=== PATIENT | female | born 1985 | race African-American/Black ===

== ENCOUNTER 2017-01-19 05:07 | Inpatient (IN) | payer MEDICAID, SELFPAY ==
[~2017-01-19 05:07] MED LIST: ISOVUE-370 76%-LOCM 1 ML ONE
[2017-01-19] MEDS ORDERED: Docusate 100 MG CAP PO PRN (06:44)
[2017-01-19] MEDS ORDERED: Morphine Sulfate 2 MG/ML SYRINGE SLOW IVP PRN (06:44)
[2017-01-19] MEDS ORDERED: Fentanyl 100 MCG/2 ML VIAL ONE (08:03)
--- NOTE | 2017-01-19 09:18 | CT ---
PRELIMINARY REPORT/[facility]/EMERGENCY AFTER HOURS PROCEDURE: EXAM: CT Angiography Head With Intravenous Contrast CLINICAL HISTORY: 31 years old, female; Condition or disease; Other: Hemorrhage; Patient HX: Er 3; F30 presents as a t ransfer from another facility for subarachnoid hemorrhage. Pt reports neck pain and HUNG. Concern for ruptured aneurysm. Ems reports 3 episodes of vomiting. Pt reports family HX of aneurysms. Pt reports its been a week since she used meth. TECHNIQUE: Axial computed tomographic angiography images of the head with intravenous contrast using CT angiogr aphy protocol. Coronal reformatted images were created and reviewed. COMPARISON: No relevant prior studies available. FINDINGS: Right internal carotid artery: No significant stenosis. No dissection or occlusion. Right anterior cerebral artery: No occlusion or significant stenosis. No aneurysm. Right middle cerebral artery: No occlusion or significant stenosis. No aneurysm. Right posterior cerebral artery: No occlusion or significant stenosis. No aneurysm. Right vertebral artery: No significant stenosis. No dissection or occlusion. Left internal carotid artery: No significant stenosis. No dissection or occlusion. Left anterior cerebral artery: No occlusion or significant stenosis. No aneurysm. Left middle cerebral artery: No occlusion or significant stenosis. No aneurysm. Left posterior cerebral artery: No occlusion or significant stenosis. No aneurysm. Left vertebral artery: No significant stenosis. No dissection or occlusion. Basilar artery: No occlusion or significant stenosis. No aneurysm. Brain: Evaluation limited by contrast opacification. Subarachnoid hemorrhage at least in the prepont ine/pre-medullary cisterns. IMPRESSION: No aneurysm is identified. Thank you for allowing us to participate in the care of your patient. Dictated and Authenticated by: Hawk Butler MD 01/19/2017 6:47 AM Central Time ([place] \T\ [place]) FINAL REPORT CONTRAST ENHANCED CTA BRAIN: HISTORY: Intracranial hemorrhage. FINDINGS: Preliminary exam was performed by [facility]. A contrast enhanced CTA of the brain was performed, and 2D and 3D reconstructed images were performe d on an independent 3D work station. No significant evidence of intracranial aneurysms or vascular malformations is seen. Normal flow is seen in the major intracranial vessels. The vertebrobasilar arteries are unremarkable. The P1 seg ments of the posterior cerebral artery are unremarkable. No evidence of AICA or PICA aneurysms is s een. IMPRESSION: Normal CTA brain. I concur with the dictation from [facility]. POS: [facility]
[2017-01-19] MEDS: Sodium Chloride 0.9% 1,000 ML IV SCH ×2 (09:39→13:52)
[2017-01-19] MEDS: niMODipine 30 MG CAP PO SCH ×5 (10:34→22:22)
[2017-01-19] MEDS ORDERED: Dexamethasone 10 MG/ML VIAL SLOW IVP SCH (11:00)
[2017-01-19] MEDS ORDERED: Labetalol HCl 100 MG/20 ML VIAL SLOW IVP PRN (11:01)
[2017-01-19] MEDS ORDERED: Dextrose 5% in Water 1,000 ML IV PRN (11:06)
[2017-01-19] MEDS ORDERED: Dextrose 50% Abboject 50 ML SYRINGE SLOW IVP PRN (11:06)
--- NOTE | 2017-01-19 11:12 | PDOC.PN ---
- Subjective Encounter Start Date: 01/19/17 Encounter Start Time: 11:07 Pt seen re: diabetes mellitus. Sleepy but arousable, denies chest pain, shortness of breath, nausea. Headache is better. - Objective MAR Reviewed: Yes EKG Reviewed by me: Yes (Tele: NSR) Phys Exam - Physical Examination Constitutional: NAD HEENT: moist MMs, oral pharynx no lesions Neck: supple, full ROM Respiratory: no wheezing, no rales, no rhonchi, clear to auscultation bilateral Cardiovascular: RRR, no rub Gastrointestinal: soft, positive bowel sounds Musculoskeletal: pulses present Neurological: non-focal, moves all 4 limbs Psychiatric: normal affect Dx/Plan (1) DM2 (diabetes mellitus, type 2) Status: Chronic (2) Methamphetamine abuse Code(s): F15.10 - OTHER STIMULANT ABUSE, UNCOMPLICATED Status: Chronic (3) Intracranial bleed Code(s): I62.9 - NONTRAUMATIC INTRACRANIAL HEMORRHAGE, UNSPECIFIED Status: Acute - Plan * . Start insulin sliding scale, monitor accuchecks. Pt to receive steroids. Counseled re: methamphetamine cessation. Review of Systems - Review of Systems Respiratory: negative: Cough, Dry, Shortness of Breath, Hemoptysis, SOB with Excertion, Pleuritic Pain, Sputum, Wheezing Cardiovascular: negative: Chest Pain, Palpitations, Orthopnea, Paroxysmal Noc. Dyspnea, Edema, Light Headedness Neurological: Other (Headache). negative: Weakness, Numbness, Incoordination, Change in Speech, Confusion, Seizures - Medications/Allergies Allergies/Adverse Reactions: Allergies Allergy/AdvReac Type Severity Reaction Status Date / Time iodine Allergy Verified 01/19/17 09:29 shellfish derived Allergy Verified 01/19/17 09:29 Medications: Current Medications Acetaminophen/Codeine Phosphate (Tylenol #3) 1 tab PO Q4H PRN PRN Reason: Moderate Pain (4-6) Acetaminophen/Codeine Phosphate (Tylenol #3) 2 tab PO Q4H PRN PRN Reason: Pain Dexamethasone (Decadron) 10 mg SLOW IVP NOW [facility] Stop: 01/19/17 13:00 Dexamethasone (Decadron) 4 mg SLOW IVP Q6HR [facility] Stop: 01/20/17 00:00 Dexamethasone (Decadron) 3 mg SLOW IVP Q6HR [facility] Stop: 01/21/17 00:00 Dexamethasone (Decadron) 2 mg SLOW IVP Q6HR [facility] Stop: 01/22/17 00:00 Dexamethasone (Decadron) 1 mg SLOW IVP Q6HR [facility] Stop: 01/23/17 00:00 Dextrose/Water (Dextrose 50%) 25 gm SLOW IVP PRN PRN PRN Reason: Hypoglycemia Docusate Sodium (Colace) 100 mg PO BIDPRN PRN PRN Reason: Constipation Glucagon (Glucagon) 1 mg IM PRN PRN PRN Reason: Hypoglycemia Hydralazine HCl (Apresoline) 5 mg SLOW IVP Q15MIN PRN PRN Reason: SBP > 120 Sodium Chloride (Normal Saline 0.9%) 1,000 mls @ 125 mls/hr IV .Q8H [facility] Last Admin: 01/19/17 09:39 Dose: Not Given Levetiracetam 500 mg/ Device 100 mls @ 200 mls/hr IVPB BID [facility] Dextrose/Water (D5w) 1,000 mls @ 0 mls/hr IV .Q0M PRN; As Directed PRN Reason: Hypoglycemia Insulin Human Regular (Humulin R) 0 units SC .MODERATE SLIDING SC PRN PRN Reason: Moderate Correctional Scale Labetalol HCl (Normodyne) 5 mg SLOW IVP Q15MIN PRN PRN Reason: TO KEEP SBP < 130 Morphine Sulfate (Morphine Sulfate) 2 mg SLOW IVP Q1H PRN PRN Reason: Moderate Pain (4-6) Morphine Sulfate (Morphine Sulfate) 4 mg SLOW IVP Q1H PRN PRN Reason: Severe Pain (7-10) Last Admin: 01/19/17 10:33 Dose: 4 mg Nimodipine (Nimodipine) 60 mg PO Q4HR [facility] Last Admin: 01/19/17 10:34 Dose: 60 mg Ondansetron HCl (Zofran) 4 mg IVP Q6H PRN PRN Reason: Nausea/Vomiting Pantoprazole Sodium (Protonix) 40 mg IVP BID [facility]
[2017-01-19] MEDS: Insulin Regular 300 UNITS/3 ML VIAL SC PRN ×2 (11:56→16:21)
--- NOTE | 2017-01-19 13:22 | PRG ---
DATE OF SERVICE: 01/19/2017 I personally interviewed and examined the patient and agree with documentation of Larry Melendez PA-C, dated 01/19/2017. Briefly, Macie Ribeiro is a 31-year-old woman with a history of some substance abuse issues who had a coital headache this morning and was brought to our emergency department. CT examination of t he brain revealed some subarachnoid hemorrhage in the posterior fossa and around the mid brain. The re was some in the fourth ventricle. CT angiography did not reveal aneurysmal source, nor significa ntly large flow voids indicative of a large AVM. The contour of the basilar artery looks a little i rregular but that is hard to tell on the CT angiogram. When I see Ms. Haas in the ICU, she is awake. She is answering questions appropriately. I do not find any cranial neuropathy. She is moving her arms and legs well. She has headache and photophob ia, neck stiffness from the chemical meningitis of subarachnoid hemorrhage in the posterior fossa. I reviewed imaging and the findings are as above. Our plan today is to control Ms. Haas's pain and blood pressure. We will keep her on nimodipine. We will repeat the CT and the CT angiography tomorrow. If it is still negative, we will consider c atheter-based angiogram on Saturday with Dr. Grajeda.
--- NOTE | 2017-01-19 13:41 | HP ---
HISTORY OF PRESENT ILLNESS: Ms. Haas originally presented to [place] [facility] wi th a stabbing headache and neck pain. She was found on CT scan of the head to have a coital subarac hnoid hemorrhage. She was transported then to [place] [facility] to be treated for a s ubarachnoid hemorrhage. She is fully awake. She answers my questions appropriately. She moves all extremities. She has a GCS of 15. During her EMS transport, she was given 50 mcg of fentanyl, in which she has pinpoint pupils bilaterally on exam and minimally reactive to light. Her other crania l nerves are intact. A CTA of the brain is done and results are pending. The patient has a family history of aneurysms and has a history of occasional methamphetamine use. Upon presentation, her bl ood pressure was 145/79. Neurosurgery was consulted for the findings of subarachnoid hemorrhage on CT scan. ALLERGIES: IODINE and SHELLFISH. CURRENT MEDICATIONS: 1. Prilosec 10 mg oral. 2. Metformin 1000 mg oral. PAST MEDICAL HISTORY: Includes diabetes type 2. PAST SURGICAL HISTORY: No surgical history. PSYCHIATRIC HISTORY: Includes anxiety and depression. SOCIAL HISTORY: Patient currently uses drugs and abuses methamphetamines, has no smoking history. Last use of methamphetamines was 01/13/2017. REVIEW OF SYSTEMS: Patient reports vomiting. She denies any abdominal pain or diarrhea. She repor ts severe neck pain and headache and denies any dizziness. All other review of systems is negative except for that noted in the above HPI. PHYSICAL EXAMINATION: VITAL SIGNS: Blood pressure 145/79, pulse 73, respirations 20, and temperature 100.1. Pain 9. O2 saturation is 100% on room air. CONSTITUTIONAL: The patient's vital signs are reviewed; they are stable. She is alert and oriented to person, place and time in generalized distress. HEENT: Normocephalic, atraumatic. Hearing intact. Moist mucous membranes. Trachea midline. Eyes : Pupils are pinpoint, minimally reactive to light. Extraocular muscles are intact. Sclerae are w ifrah, nonicteric. NECK: Patient has diffuse posterior neck pain. She has normal range of motion. Trachea is midline . RESPIRATORY: Patient has bilateral symmetric chest rise. Appears to be in no shortness of breath. CARDIOVASCULAR: Patient has normal S1, S2 heart sounds. Regular rate and rhythm. No distal cyanos is or clubbing noted. EXTREMITIES: Upper extremity exam, motor and strength are intact bilaterally. Sensation is intact. She has normal radial pulses are +2. Lower extremities, 5/5 strength in bilateral lower extremiti es. No sensory or motor deficits noted. NEUROLOGIC: Cranial nerves II-XII are grossly intact. Speech is fluent and she answers my question s appropriately. She is moving all extremities, has no focal motor or sensory deficits. SKIN: Normal, dry, and intact. Turgor is normal. IMAGING: CT scan of the brain shows subarachnoid hemorrhage. CTA angio awaiting results. ASSESSMENT: Ms. Ribeiro is a 31-year-old female who is transferred from [place] for a subarachnoid hemorrhage to [place]. PLAN: 1. We will admit Ms. Ribeiro to the ICU. Get a repeat CT scan in approximately 6 hours. We will sta rt her on nimodipine 60 mg q.4 hours for 21 days. We will consult the Hospitalist Service for diabe tic management as her glucose is 418. 2. Place the head of bed at 30 degrees and do neuro status checks every 2 hours. 3. We will do continuous vital signs and help control her neck and headache pain. If there are any further questions, please feel free to contact Neurosurgery.
--- NOTE | 2017-01-19 15:59 | CT ---
CT BRAIN 01/19/17 HISTORY: Status post subarachnoid hemorrhage. Noncontrast enhanced CT images of the brain is obtained on 01/19/17. Comparison made to a previous exam from earlier in the day. Noncontrast enhanced CT images of the brain demonstrated again lateral ventricle hemorrhage, third, fourth ventricular hemorrhage to be seen. The volume of hemorrhage in the ventricles is not signific antly changed. The degree of hydrocephalus is not significantly changed. Prepontine subarachnoid hem orrhage is also unchanged. No significant increased hemorrhage seen. No other significant interval c hanges seen. IMPRESSION: Stable CT appearance of the brain with hemorrhage and hydrocephalus unchanged. POS: [facility]
[2017-01-19] MEDS: Dexamethasone 4 mg/ml Vial SLOW IVP SCH (17:29)
[2017-01-19] MEDS: Ondansetron HCl/PF 4 MG/2 ML Vial IVP PRN (17:45)
--- NOTE | 2017-01-19 20:07 | PRG ---
DATE OF SERVICE: 01/19/2017 Quintin Haas is a 31-year-old female. History is as outlined. She is just back from the CT. She i s getting morphine. She is lethargic, but arousable. Earlier Dr. Huston, neurosurgeon, examined her. Her [place] coma score was 5. She is . She presented to [place] with a headache. CT showed a subarachnoid hemorrhage, and was transfe rred over here. She was started on nimodipine 60 mg every 4 hours protocol for 21 days. PAST MEDICAL HISTORY: Diabetes, reflux. She takes metformin and Prilosec. PREVIOUS SURGERIES: Apparently none. SOCIAL AND FAMILY HISTORY: Apparently, there is some history of substance abuse of meth. REVIEW OF SYSTEMS: Otherwise unremarkable. PHYSICAL EXAMINATION: VITAL SIGNS: Her blood pressure is 118/80, pulse 80, respirations 18. CHEST: Revealed decreased breath sounds, no wheezing. CARDIAC: Normal S1, S2. No gallops . ABDOMEN: Soft, no masses. LABORATORY DATA: White count 10, H and H was 10 and 38. Platelet count is normal. Electrolytes ar e normal. Urine showed opiates. IMAGING: Patient's CT is noted. No obvious aneurysm was seen. No chest x-ray has been done. IMPRESSION: 1. Subarachnoid hemorrhage. 2. Diabetes. PLAN: Continue nimodipine as per Neurosurgery. We will follow while in the ICU.
[2017-01-19] MEDS: Pantoprazole 40 MG VIAL IVP SCH (22:12)
[2017-01-20] MEDS: Ondansetron HCl/PF 4 MG/2 ML Vial IVP PRN ×5 (00:19→23:47)
[2017-01-20] MEDS: Dexamethasone 4 mg/ml Vial SLOW IVP SCH ×4 (00:19→18:24)
[2017-01-20] MEDS: niMODipine 30 MG CAP PO SCH ×6 (01:17→20:35)
[2017-01-20] MEDS: Sodium Chloride 0.9% 1,000 ML IV SCH ×3 (01:18→14:45)
[2017-01-20 04:05] LABS: #Monocytes 0.3 thou/uL (0.11-0.59); #Neutrophils 14.8 thou/uL (1.40-6.50); %Basophils 0.1 % (0.0-1.0); %Eosinophils 0.2 % (0.0-10.0); %Lymphocytes 6.3 % (21.0-51.0); %Monocytes 1.8 % (0.0-10.0); Hematocrit 37.1 % (36.0-47.0); Mean Platelet Volume 7.7 fL (7.4-10.4); Red Blood Cell (RBC) Count 3.87 mill/uL (4.20-5.40); White Blood Cell (WBC) Count 16.2 thou/uL (4.8-10.8)
[2017-01-20 04:18] LABS: Anion Gap 14 mmol/L (10-20); BUN (Urea Nitrogen) 8 mg/dL (7.0-18.7); Calc. Creatinine Clearance 127 mL/min (70-130); Carbon Dioxide 17 mmol/L (22-29); Chloride 106 mmol/L (98-107); Estimated GFR-MDRD Greater than 90
[2017-01-20] MEDS ORDERED: Famotidine/PF 20 mg/2ml Vial SLOW IVP SCH (06:30)
[2017-01-20] MEDS ORDERED: diphenhydrAMINE HCl 50 MG/ML 1 ML VIAL IVP SCH (06:30)
[2017-01-20] MEDS: Pantoprazole 40 MG VIAL IVP SCH ×2 (09:01→20:35)
--- NOTE | 2017-01-20 09:31 | PRG ---
DATE OF SERVICE: 01/20/2017 NEUROSURGERY PROGRESS NOTE SUBJECTIVE: Ms. Waldo Ribeiro is starting her second hospital day with us. She was admitted with co ital headache and some subarachnoid hemorrhage around the brainstem and mid brain. CT angiography w as negative. We have been watching Ms. Waldo Ribeiro's blood pressure and giving her nimodipine. Th is morning, she still complains of headache and neck pain and she is neurologically intact. A repea t CT scan yesterday showed decreased amount of subarachnoid blood. I am going to repeat the CT tabitha ogram of the brain to make sure that we do not see any vessel abnormality as blood goes away. Ana María regalado, I consider CT angiogram of the cervical spine, specifically looking at her carotid arteries and v ertebral arteries for any dissection.
--- NOTE | 2017-01-20 11:02 | PRG ---
DATE OF SERVICE: 01/20/2017 SUBJECTIVE: I saw Ms. Haas in her room this morning. Overnight, there have been no acute events. Her cranial nerves II-XII are grossly intact. Her speech is fluent. She answers my questions alden ropriately. We plan on getting a CT scan of her head and neck today. White blood cell count was 16 .2 and RBCs are 3.87 this morning. She had sodium of 133 and her glucose is 255. She does not have any new neurologic deficits on exam. We will continue to await the results from the CT. She can c marylou to work with physical therapy today. If there is any further questions, please feel free to contact Neurosurgery.
--- NOTE | 2017-01-20 11:12 | PDOC.PN ---
- Subjective Encounter Start Date: 01/20/17 Encounter Start Time: 10:20 Pt seen for followup re; diabetes mellitus. Has headache. No chest pain, shortness of breath, fevers or chills. No vomiting. - Objective MAR Reviewed: Yes Vital Signs & Weight: Most Recent Monitor Data Heart Rate from ECG 77 NIBP 125/54 NIBP BP-Mean 76 Respiration from ECG 19 SpO2 99 I&O: 01/19/17 01/20/17 01/21/17 06:59 06:59 06:59 Intake Total 303 320 Output Total 2765 721 Balance -2462 -401 Result Diagrams: 01/20/17 03:48 01/20/17 03:48 Additional Labs: Accuchecks 01/19/17 01/19/17 01/19/17 22:20 16:19 11:12 POC Glucose 185 H 255 H 290 H EKG Reviewed by me: Yes (Tele: NSR) Phys Exam - Physical Examination Constitutional: NAD HEENT: moist MMs, oral pharynx no lesions Neck: supple Respiratory: no wheezing, no rales, no rhonchi, clear to auscultation bilateral Cardiovascular: RRR, no rub Neurological: moves all 4 limbs Psychiatric: normal affect Dx/Plan (1) DM2 (diabetes mellitus, type 2) Status: Chronic (2) Methamphetamine abuse Code(s): F15.10 - OTHER STIMULANT ABUSE, UNCOMPLICATED Status: Chronic (3) Intracranial bleed Code(s): I62.9 - NONTRAUMATIC INTRACRANIAL HEMORRHAGE, UNSPECIFIED Status: Acute - Plan * . Accuchecks still high, start levemir. Review of Systems - Review of Systems Respiratory: negative: Cough, Dry, Shortness of Breath, Hemoptysis, SOB with Excertion, Pleuritic Pain, Sputum, Wheezing Cardiovascular: negative: Chest Pain, Palpitations, Orthopnea, Paroxysmal Noc. Dyspnea, Edema, Light Headedness, Other Neurological: Other (Headache) - Medications/Allergies Allergies/Adverse Reactions: Allergies Allergy/AdvReac Type Severity Reaction Status Date / Time Fish Containing Products Allergy Verified 01/19/17 17:45 iodine Allergy Verified 01/19/17 09:29 shellfish derived Allergy Verified 01/19/17 09:29 Medications: Current Medications Acetaminophen/Codeine Phosphate (Tylenol #3) 1 tab PO Q4H PRN PRN Reason: Moderate Pain (4-6) Acetaminophen/Codeine Phosphate (Tylenol #3) 2 tab PO Q4H PRN PRN Reason: Pain Dexamethasone (Decadron) 3 mg SLOW IVP Q6HR [facility] Stop: 01/21/17 00:00 Last Admin: 01/20/17 06:51 Dose: 3 mg Dexamethasone (Decadron) 2 mg SLOW IVP Q6HR [facility] Stop: 01/22/17 00:00 Dexamethasone (Decadron) 1 mg SLOW IVP Q6HR [facility] Stop: 01/23/17 00:00 Dextrose/Water (Dextrose 50%) 25 gm SLOW IVP PRN PRN PRN Reason: Hypoglycemia Diphenhydramine HCl (Benadryl) 50 mg IVP NOW [facility] Stop: 01/20/17 12:00 Last Admin: 01/20/17 06:50 Dose: 50 mg Docusate Sodium (Colace) 100 mg PO BIDPRN PRN PRN Reason: Constipation Famotidine (Pepcid) 20 mg SLOW IVP NOW [facility] Stop: 01/20/17 12:00 Last Admin: 01/20/17 06:50 Dose: 20 mg Glucagon (Glucagon) 1 mg IM PRN PRN PRN Reason: Hypoglycemia Hydralazine HCl (Apresoline) 5 mg SLOW IVP Q15MIN PRN PRN Reason: SBP > 120 Sodium Chloride (Normal Saline 0.9%) 1,000 mls @ 125 mls/hr IV .Q8H [facility] Last Admin: 01/20/17 01:18 Dose: 1,000 mls Levetiracetam 500 mg/ Device 100 mls @ 200 mls/hr IVPB BID [facility] Last Admin: 01/20/17 09:18 Dose: 100 mls Dextrose/Water (D5w) 1,000 mls @ 0 mls/hr IV .Q0M PRN; As Directed PRN Reason: Hypoglycemia Insulin Detemir 10 units/ (Miscellaneous Medication) 0.1 mls @ 0 mls/hr SC NOW [facility] Insulin Detemir 10 units/ (Miscellaneous Medication) 0.1 mls @ 0 mls/hr SC QAM [facility] Insulin Human Regular (Humulin R) 0 units SC .MODERATE SLIDING SC PRN PRN Reason: Moderate Correctional Scale Last Admin: 01/19/17 16:21 Dose: 6 unit Labetalol HCl (Normodyne) 5 mg SLOW IVP Q15MIN PRN PRN Reason: TO KEEP SBP < 130 Morphine Sulfate (Morphine Sulfate) 2 mg SLOW IVP Q1H PRN PRN Reason: Moderate Pain (4-6) Morphine Sulfate (Morphine Sulfate) 4 mg SLOW IVP Q1H PRN PRN Reason: Severe Pain (7-10) Last Admin: 01/20/17 08:45 Dose: 4 mg Nimodipine (Nimodipine) 60 mg PO Q4HR [facility] Last Admin: 01/20/17 09:01 Dose: 60 mg Ondansetron HCl (Zofran) 4 mg IVP Q6H PRN PRN Reason: Nausea/Vomiting Last Admin: 01/20/17 06:51 Dose: 4 mg Pantoprazole Sodium (Protonix) 40 mg IVP BID [facility] Last Admin: 01/20/17 09:01 Dose: 40 mg
[2017-01-20] MEDS ORDERED: Insulin Detemir 100 UNITS/ML 10 UNITS in Pre-Filled Syringe 1 EACH SC SCH (11:15)
[2017-01-20] MEDS: Insulin Regular 300 UNITS/3 ML VIAL SC PRN ×3 (12:20→22:12)
[2017-01-20] MEDS ORDERED: ISOVUE-370 76%-LOCM 1 ML ONE ×2 (16:42)
--- NOTE | 2017-01-20 17:32 | PRG ---
DATE OF SERVICE: 01/20/2017 SUBJECTIVE: Awake, alert, responsive, moves all 4 extremities. PHYSICAL EXAMINATION: VITAL SIGNS: Blood pressure 140/69, pulse is 110, sats 93%, respiratory rate 18. CHEST: Decreased breath sounds, no wheezing. CARDIAC: Normal S1, S2. No gallops. LABORATORY DATA: Sodium is 133. Otherwise, labs are normal. IMPRESSION: Status post subarachnoid hemorrhage. On Decadron, , Keppra, supportive care. Await neurosurgical input. We will follow while in the ICU.
--- NOTE | 2017-01-20 19:07 | CT ---
CTA OF THE HEAD WITH IV CONTRAST AND 3D REFORMATTED IMAGING CTA OF THE NECK WITH IV CONTRAST AND 3D REFORMATTED IMAGING: Indication: History of subarachnoid hemorrhage, concern for underlying aneurysm; possible surgery ne eded tomorrow for a dissection in the neck. Comparison: Prior CT of the head with and without contrast, 01-19-[address] of the brai n 01-19-17. Comparisons are also made with the original of the CT of the brain dated 01-19-17 at 3:10 a.m. FINDINGS: CTA NECK: The lung apices are clear. The prevertebral soft tissues appear within normal limits. The aerodigestive tract is normal appeari ng. The parotid, submandibular, and thyroid glands are normal appearing. No pathologically enlarged lymph nodes are evident. The thoracic aortic arch is normal appearing. The brachiocephalic, right subclavian, right common ca rotid arteries are widely patent. The cervical right ICA appears to be widely patent. The left common carotid artery is widely patent. The left internal carotid artery appears to be wide ly patent within its cervical course. The left subclavian artery appears widely patent. Both vertebral artery origins are widely patent. CTA OF THE HEAD: The extend of the intraventricular hemorrhage within the third and fourth ventricles with some exten eli into the right lateral ventricle has diminished in prominence. The extent of the subarachnoid h emorrhage seen anterior to the selma has also diminished in prominence. Small amount of hemorrhage is seen near the foramen magnum just right of midline adjacent to the right cerebellar tonsils. No hyd rocephalus is present. No acute infarct is noted. No hemodynamically significant stenosis, occlusion or aneurysm formation is demonstrated involving t he intracranial vasculature. The beam hardened artifact at the petrous segment of the ICA slightly l imits the evaluation. No area of abnormal enhancement is evident within the brain. IMPRESSION: 1. Decrease in the prominence of the intraventricular and subarachnoid hemorrhage. 2. No hemodynamically significant stenosis, occlusion or aneurysmal formation seen on the CTA of the head . 3. No hemodynamically significant stenosis, occlusion, or aneurysmal formation seen involving the CT A of the neck. POS: [facility]
[2017-01-21] MEDS: Dexamethasone 4 mg/ml Vial SLOW IVP SCH ×4 (00:25→18:27)
[2017-01-21] MEDS: niMODipine 30 MG CAP PO SCH ×6 (00:37→21:02)
[2017-01-21] MEDS: Sodium Chloride 0.9% 1,000 ML IV SCH ×7 (00:37→22:05)
[2017-01-21] MEDS: Ondansetron HCl/PF 4 MG/2 ML Vial IVP PRN (04:50)
[2017-01-21] MEDS: Insulin Regular 300 UNITS/3 ML VIAL SC PRN ×3 (05:50→15:33)
[2017-01-21] MEDS ORDERED: Heparin 10,000 UNITS/1 ML VIAL ONE (07:12)
--- NOTE | 2017-01-21 07:24 | PRG ---
DATE OF SERVICE: 01/21/2017 She has a headache, otherwise is doing well. PHYSICAL EXAMINATION: VITAL SIGNS: Temperature is 98.6, pulse 55, blood pressure 128/59, 24-hour intake 1953, output 3475 . HEENT: Unremarkable. NECK: No JVD. CHEST: Clear. CARDIAC: S1 and S2 regular. ABDOMEN: Soft. NEUROLOGIC: Nonfocal. ASSESSMENT: Status post subarachnoid hemorrhage. PLAN: She is continuing on Decadron and empiric Keppra. She is also on amlodipine for vasospasm. I told her to discuss long-term management with Dr. Huston when he comes around. At some point s he will have repeat CT angiography.
[2017-01-21] MEDS: Acetaminophen/Codeine 30-300mg Tablet PO PRN ×2 (08:02→21:24)
[2017-01-21] MEDS: Pantoprazole 40 MG VIAL IVP SCH ×2 (08:04→21:03)
--- NOTE | 2017-01-21 08:29 | PRG ---
DATE OF SERVICE: 01/21/2017 SUBJECTIVE: I saw Ms. Haas again this morning. She continues to have headache and neck pain as w ell as photophobia and retro-orbital pain. Her vitals look stable. On examination, I did not find any cranial neuropathies or lateralizing motor or sensory deficits. I reviewed CT angiography of the cervical spine and brain. The arterial system does not seem to hav e any dissection. I do not see any aneurysm. There is no obvious large AVM. I told Ms. Haas that we would be definitive and get a catheter based angiogram while she is in the hospital. Dr. Grajeda has agreed to do this. After the angiogram, we will start mobilization. We w ill continue her steroids for the irritation that the blood products cause at the meninges. We will keep her blood pressure controlled. We will continue nimodipine for now. I am encouraged by the w artem out of the cerebrospinal fluid and the chemical meningitis that the blood is causing, we will ho pefully anticipate in the coming days.
--- NOTE | 2017-01-21 08:53 | PRG ---
DATE OF SERVICE: 01/21/2017 Ms. Haas is a 31-year-old female who I saw in her room this morning. She continues to have a hea dache and neck pain and some photophobia. Her vital signs have been stable overnight. I do not fin d any new neurologic deficits on exam. Dr. Grajeda is going to be taking her this morning to do an an giogram. After that, we will start her with physical therapy mobilizing her and continuing her on s teroids. We will continue the nimodipine for 21 days as recommended. Mobilization will be callaway to p rogression of her while in hospital. If there are any further questions, please feel free to contact Neurosurgery.
[2017-01-21] MEDS ORDERED: Insulin Detemir 100 UNITS/ML 10 UNITS in Pre-Filled Syringe 1 EACH SC SCH (09:00)
--- NOTE | 2017-01-21 14:08 | PDOC.PN ---
- Subjective Encounter Start Date: 01/21/17 Encounter Start Time: 14:07 Pt seen for followup re; diabetes mellitus. Denies chest pain or shortness of breath. Reports headache. No nausea or vomiting. - Objective MAR Reviewed: Yes Vital Signs & Weight: Vital Signs (12 hours) Temp Pulse Resp Pulse Ox 01/21/17 12:00 98.0 F 01/21/17 09:52 98.3 F 01/21/17 08:00 98.7 F 90 16 100 01/21/17 07:00 98.7 F 01/21/17 04:00 98.6 F Weight Weight 200 lb 9.93 oz Most Recent Monitor Data Heart Rate from ECG 60 NIBP 115/69 NIBP BP-Mean 98 Respiration from ECG 16 SpO2 99 I&O: 01/20/17 01/21/17 01/22/17 06:59 06:59 06:59 Intake Total 303 1953 700 Output Total 6295 2535 385 Balance -4142 1522 315 Result Diagrams: 01/20/17 03:48 01/20/17 03:48 Additional Labs: Accuchecks 01/21/17 01/21/17 01/20/17 11:13 05:49 22:03 POC Glucose 258 H 241 H 194 H 01/20/17 17:15 POC Glucose 236 H EKG Reviewed by me: Yes (Tele: NSR) Phys Exam - Physical Examination Constitutional: NAD HEENT: moist MMs, oral pharynx no lesions Neck: supple Respiratory: no wheezing, no rales, no rhonchi, clear to auscultation bilateral Cardiovascular: RRR Gastrointestinal: soft Neurological: non-focal, moves all 4 limbs Psychiatric: normal affect Dx/Plan (1) DM2 (diabetes mellitus, type 2) Status: Chronic (2) Methamphetamine abuse Code(s): F15.10 - OTHER STIMULANT ABUSE, UNCOMPLICATED Status: Chronic (3) Intracranial bleed Code(s): I62.9 - NONTRAUMATIC INTRACRANIAL HEMORRHAGE, UNSPECIFIED Status: Acute - Plan DVT proph w/SCDs * . Blood sugars still high, increase levemir dose. Review of Systems - Review of Systems Respiratory: negative: Cough, Dry, Shortness of Breath, Hemoptysis, SOB with Excertion, Pleuritic Pain, Sputum, Wheezing Cardiovascular: negative: Chest Pain, Palpitations, Orthopnea, Paroxysmal Noc. Dyspnea, Edema, Light Headedness, Other Neurological: Other. negative: Weakness, Numbness, Incoordination, Change in Speech, Confusion, Seizures Other: Headache - Medications/Allergies Allergies/Adverse Reactions: Allergies Allergy/AdvReac Type Severity Reaction Status Date / Time Fish Containing Products Allergy Verified 01/19/17 17:45 iodine Allergy Verified 01/19/17 09:29 shellfish derived Allergy Verified 01/19/17 09:29 Medications: Current Medications Acetaminophen/Codeine Phosphate (Tylenol #3) 1 tab PO Q4H PRN PRN Reason: Moderate Pain (4-6) Acetaminophen/Codeine Phosphate (Tylenol #3) 2 tab PO Q4H PRN PRN Reason: Pain Last Admin: 01/21/17 08:02 Dose: 2 tab Dexamethasone (Decadron) 2 mg SLOW IVP Q6HR [facility] Stop: 01/22/17 00:00 Last Admin: 01/21/17 12:19 Dose: 2 mg Dexamethasone (Decadron) 1 mg SLOW IVP Q6HR [facility] Stop: 01/23/17 00:00 Dextrose/Water (Dextrose 50%) 25 gm SLOW IVP PRN PRN PRN Reason: Hypoglycemia Docusate Sodium (Colace) 100 mg PO BIDPRN PRN PRN Reason: Constipation Glucagon (Glucagon) 1 mg IM PRN PRN PRN Reason: Hypoglycemia Hydralazine HCl (Apresoline) 5 mg SLOW IVP Q15MIN PRN PRN Reason: SBP > 120 Sodium Chloride (Normal Saline 0.9%) 1,000 mls @ 125 mls/hr IV .Q8H [facility] Last Admin: 01/21/17 06:44 Dose: 1,000 mls Levetiracetam 500 mg/ Device 100 mls @ 200 mls/hr IVPB BID [facility] Last Admin: 01/21/17 08:02 Dose: 100 mls Dextrose/Water (D5w) 1,000 mls @ 0 mls/hr IV .Q0M PRN; As Directed PRN Reason: Hypoglycemia Insulin Detemir 10 units/ (Miscellaneous Medication) 0.1 mls @ 0 mls/hr SC QAM [facility] Last Admin: 01/21/17 09:41 Dose: 0.1 mls Sodium Chloride (Normal Saline 0.9%) 1,000 mls @ 80 mls/hr IV .[id number] [facility] Last Admin: 01/21/17 12:12 Dose: Not Given Insulin Human Regular (Humulin R) 0 units SC .MODERATE SLIDING SC PRN PRN Reason: Moderate Correctional Scale Last Admin: 01/21/17 11:14 Dose: 6 unit Labetalol HCl (Normodyne) 5 mg SLOW IVP Q15MIN PRN PRN Reason: TO KEEP SBP < 130 Morphine Sulfate (Morphine Sulfate) 2 mg SLOW IVP Q1H PRN PRN Reason: Moderate Pain (4-6) Morphine Sulfate (Morphine Sulfate) 4 mg SLOW IVP Q1H PRN PRN Reason: Severe Pain (7-10) Last Admin: 01/21/17 13:00 Dose: 4 mg Nimodipine (Nimodipine) 60 mg PO Q4HR [facility] Last Admin: 01/21/17 12:19 Dose: 60 mg Ondansetron HCl (Zofran) 4 mg IVP Q6H PRN PRN Reason: Nausea/Vomiting Last Admin: 01/21/17 04:50 Dose: 4 mg Pantoprazole Sodium (Protonix) 40 mg IVP BID [facility] Last Admin: 01/21/17 08:04 Dose: 40 mg
[2017-01-21] MEDS ORDERED: Iopamidol 370 76% 50 ML VIAL FS ONE (17:14)
[2017-01-21] MEDS ORDERED: Insulin Detemir 100 UNITS/ML 5 UNITS in Pre-Filled Syringe SC SCH (20:30)
[2017-01-22] MEDS: Dexamethasone 4 mg/ml Vial SLOW IVP SCH ×4 (01:19→17:32)
[2017-01-22] MEDS: niMODipine 30 MG CAP PO SCH ×6 (01:20→21:13)
[2017-01-22] MEDS: Insulin Regular 300 UNITS/3 ML VIAL SC PRN ×3 (06:43→21:17)
--- NOTE | 2017-01-22 07:09 | PRG ---
DATE OF SERVICE: 01/22/2017 Ms. Haas was moved the ICU and she is on the stroke unit. She continues to have headache and neck pain, when she moves around, the pain gets worse. She had a successful diagnostic cerebral angiogr am yesterday and there was no dissection, aneurysm, fistula or venous occlusion. Ms. Haas's vital signs are stable this morning. She is awake and alert. There is no cranial neur opathy. She is moving all her extremities well. There is no lateralizing motor or sensory deficits . My plan for Ms. Haas is to make sure her pain is controlled and that she is safe for activities of daily living before discharging her home. I warned her that there will be irritation of the lumbar nerve roots as she stands up blood makes its way down to the dependent portions of the CSF space in the lumbar spine, but that that sensation will get better over the coming weeks.
[2017-01-22] MEDS: Acetaminophen/Codeine 30-300mg Tablet PO PRN (08:22)
[2017-01-22] MEDS: Pantoprazole 40 MG VIAL IVP SCH ×2 (08:32→21:13)
[2017-01-22] MEDS ORDERED: Insulin Detemir 100 UNITS/ML 15 UNITS in Pre-Filled Syringe SC SCH (09:00)
--- NOTE | 2017-01-22 10:24 | PRG ---
DATE OF SERVICE: 01/22/2017 SUBJECTIVE: Ms. Haas is a 31-year-old female, who I saw in her room this morning. She was transf erred yesterday out of the ICU to the stroke unit after angiogram with Dr. Grajeda. Her vital signs h ave been stable overnight. She is still complaining of mild headache and neck pain this morning. I reinforced the importance of her getting up and walking as much as possible today and I told her th at that may resolve her headache quicker. She said that she was not ambulated yesterday at all ____ _ physical therapy. It will be eminent today that we ambulate in the raphael several times. She is ab le to tolerate regular diet and her pain is well controlled with pain medication. There are no new neurologic deficits on exam this morning and she answers all of my questions appropriately. Continu e to work with physical therapy throughout day and ambulate as much as possible to help resumption o f the blood in the brain. If there are any further questions, please feel free to contact Neurosurg perlita.
[2017-01-22] MEDS: Sodium Chloride 0.9% 1,000 ML IV SCH ×4 (11:57→22:25)
--- NOTE | 2017-01-22 17:59 | PDOC.PN ---
- Subjective Encounter Start Date: 01/22/17 Encounter Start Time: 11:00 Pt seen for followup re: diabetes mellitus. Reports headache. Blood sugars better, not yet under control. - Objective MAR Reviewed: Yes Vital Signs & Weight: Vital Signs (12 hours) Temp Pulse Pulse Pulse Pulse Pulse Resp 01/22/17 15:49 98.5 F 68 16 01/22/17 12:00 98.5 F 60 17 01/22/17 09:15 70 89 90 50 L 01/22/17 09:12 70 90 50 L 01/22/17 08:22 98.5 F 60 17 01/22/17 08:00 99.1 F 62 16 BP BP BP BP BP Pulse Ox 01/22/17 15:49 128/79 99 01/22/17 12:00 138/84 99 01/22/17 09:15 144/79 H 130/83 113/77 138/80 01/22/17 09:12 144/79 H 113/77 138/80 01/22/17 08:22 99 01/22/17 08:00 142/88 H 99 Weight Weight 200 lb 11.2 oz Most Recent Monitor Data Heart Rate from ECG 59 NIBP 131/72 NIBP BP-Mean 83 Respiration from ECG 13 SpO2 100 I&O: 01/21/17 01/22/17 01/23/17 06:59 06:59 06:59 Intake Total 1953 2657 Output Total 3475 2340 1300 Balance -1522 317 -1300 Result Diagrams: 01/20/17 03:48 01/20/17 03:48 Additional Labs: Accuchecks 01/22/17 01/22/17 01/22/17 17:01 11:04 06:18 POC Glucose 231 H 229 H 185 H 01/21/17 20:59 POC Glucose 185 H EKG Reviewed by me: Yes (Tele: NSR) Phys Exam - Physical Examination Constitutional: NAD HEENT: moist MMs Neck: supple, full ROM Respiratory: no wheezing, no rales, no rhonchi, clear to auscultation bilateral Cardiovascular: RRR, no rub Gastrointestinal: soft, positive bowel sounds Neurological: moves all 4 limbs Psychiatric: normal affect Dx/Plan (1) DM2 (diabetes mellitus, type 2) Status: Chronic (2) Methamphetamine abuse Code(s): F15.10 - OTHER STIMULANT ABUSE, UNCOMPLICATED Status: Chronic (3) Intracranial bleed Code(s): I62.9 - NONTRAUMATIC INTRACRANIAL HEMORRHAGE, UNSPECIFIED Status: Acute - Plan PT/OT, out of bed/ambulate, DVT proph w/SCDs * . Increase levemir dose. Continue pain medications. Review of Systems - Review of Systems Respiratory: negative: Cough, Dry, Shortness of Breath, Hemoptysis, SOB with Excertion, Pleuritic Pain, Sputum, Wheezing Cardiovascular: negative: Chest Pain, Palpitations, Orthopnea, Paroxysmal Noc. Dyspnea, Edema, Light Headedness Neurological: Other. negative: Weakness, Numbness, Incoordination, Change in Speech, Confusion, Seizures (Headache+) - Medications/Allergies Allergies/Adverse Reactions: Allergies Allergy/AdvReac Type Severity Reaction Status Date / Time Fish Containing Products Allergy Verified 01/19/17 17:45 iodine Allergy Verified 01/19/17 09:29 shellfish derived Allergy Verified 01/19/17 09:29 Medications: Current Medications Acetaminophen/Codeine Phosphate (Tylenol #3) 1 tab PO Q4H PRN PRN Reason: Moderate Pain (4-6) Last Admin: 01/22/17 08:22 Dose: 1 tab Acetaminophen/Codeine Phosphate (Tylenol #3) 2 tab PO Q4H PRN PRN Reason: Pain Last Admin: 01/21/17 08:02 Dose: 2 tab Dexamethasone (Decadron) 1 mg SLOW IVP Q6HR [facility] Stop: 01/23/17 00:00 Last Admin: 01/22/17 17:32 Dose: 1 mg Dextrose/Water (Dextrose 50%) 25 gm SLOW IVP PRN PRN PRN Reason: Hypoglycemia Docusate Sodium (Colace) 100 mg PO BIDPRN PRN PRN Reason: Constipation Glucagon (Glucagon) 1 mg IM PRN PRN PRN Reason: Hypoglycemia Hydralazine HCl (Apresoline) 5 mg SLOW IVP Q15MIN PRN PRN Reason: SBP > 120 Sodium Chloride (Normal Saline 0.9%) 1,000 mls @ 125 mls/hr IV .Q8H [facility] Last Admin: 01/22/17 14:27 Dose: 1,000 mls Levetiracetam 500 mg/ Device 100 mls @ 200 mls/hr IVPB BID [facility] Last Admin: 01/22/17 10:15 Dose: 100 mls Dextrose/Water (D5w) 1,000 mls @ 0 mls/hr IV .Q0M PRN; As Directed PRN Reason: Hypoglycemia Sodium Chloride (Normal Saline 0.9%) 1,000 mls @ 80 mls/hr IV .[id number] [facility] Last Admin: 01/22/17 12:27 Dose: 1,000 mls Insulin Detemir 20 units/ (Miscellaneous Medication) 0.2 mls @ 0 mls/hr SC QAM [facility] Insulin Detemir 5 units/ (Miscellaneous Medication) 0.05 mls @ 0 mls/hr SC ONE [facility] Insulin Human Regular (Humulin R) 0 units SC .MODERATE SLIDING SC PRN PRN Reason: Moderate Correctional Scale Last Admin: 01/22/17 17:43 Dose: 4 unit Labetalol HCl (Normodyne) 5 mg SLOW IVP Q15MIN PRN PRN Reason: TO KEEP SBP < 130 Morphine Sulfate (Morphine Sulfate) 2 mg SLOW IVP Q1H PRN PRN Reason: Moderate Pain (4-6) Morphine Sulfate (Morphine Sulfate) 4 mg SLOW IVP Q1H PRN PRN Reason: Severe Pain (7-10) Last Admin: 01/22/17 17:31 Dose: 4 mg Nimodipine (Nimodipine) 60 mg PO Q4HR [facility] Last Admin: 01/22/17 17:31 Dose: 60 mg Ondansetron HCl (Zofran) 4 mg IVP Q6H PRN PRN Reason: Nausea/Vomiting Last Admin: 01/21/17 04:50 Dose: 4 mg Pantoprazole Sodium (Protonix) 40 mg IVP BID [facility] Last Admin: 01/22/17 08:32 Dose: 40 mg
[2017-01-22] MEDS ORDERED: Insulin Detemir 100 UNITS/ML 5 UNITS in Pre-Filled Syringe SC SCH (18:00)
[2017-01-23] MEDS: niMODipine 30 MG CAP PO SCH ×6 (00:16→20:40)
[2017-01-23] MEDS: Dexamethasone 4 mg/ml Vial SLOW IVP SCH (00:16)
[2017-01-23] MEDS: Sodium Chloride 0.9% 1,000 ML IV SCH ×4 (00:40→21:46)
[2017-01-23] MEDS: Acetaminophen/Codeine 30-300mg Tablet PO PRN ×4 (05:09→20:37)
[2017-01-23] MEDS: Ondansetron HCl/PF 4 MG/2 ML Vial IVP PRN (05:54)
[2017-01-23] MEDS: Insulin Regular 300 UNITS/3 ML VIAL SC PRN ×2 (06:26→17:34)
[2017-01-23] MEDS ORDERED: Insulin Detemir 100 UNITS/ML 20 UNITS in Pre-Filled Syringe SC SCH (09:00)
[2017-01-23] MEDS: Pantoprazole 40 MG VIAL IVP SCH (10:30)
--- NOTE | 2017-01-23 13:34 | PDOC.PN ---
- Subjective Encounter Start Date: 01/23/17 Encounter Start Time: 07:40 Pt seen for followup re; diabetes mellitus. Reports headache is better. Denies chest pain, shortness of breath, fevers or chills. - Objective MAR Reviewed: Yes Vital Signs & Weight: Vital Signs (12 hours) Temp Pulse Pulse Pulse Resp BP BP 01/23/17 12:00 99.2 F 68 18 01/23/17 09:07 86 88 139/88 142/102 H 01/23/17 08:15 98.8 F 67 20 01/23/17 08:00 98.8 F 67 20 01/23/17 04:00 99.5 F 82 16 BP Pulse Ox 01/23/17 12:00 126/69 97 01/23/17 09:07 01/23/17 08:15 99 01/23/17 08:00 134/83 99 01/23/17 04:00 142/79 H 98 Weight Weight 202 lb Most Recent Monitor Data Heart Rate from ECG 59 NIBP 131/72 NIBP BP-Mean 83 Respiration from ECG 13 SpO2 100 I&O: 01/22/17 01/23/17 01/24/17 06:59 06:59 06:59 Intake Total 2657 2173 60 Output Total 2340 2950 Balance 317 -777 60 Result Diagrams: 01/20/17 03:48 01/20/17 03:48 Additional Labs: Accuchecks 01/23/17 01/23/17 01/22/17 11:02 05:53 21:07 POC Glucose 282 H 192 H 279 H 01/22/17 17:01 POC Glucose 231 H EKG Reviewed by me: Yes (Tele: NSR) Phys Exam - Physical Examination Constitutional: NAD HEENT: moist MMs Neck: supple Respiratory: no wheezing, no rales, no rhonchi, clear to auscultation bilateral Cardiovascular: RRR, no rub Gastrointestinal: soft, positive bowel sounds Musculoskeletal: pulses present Psychiatric: normal affect Skin: no rash Dx/Plan (1) DM2 (diabetes mellitus, type 2) Status: Chronic (2) Methamphetamine abuse Code(s): F15.10 - OTHER STIMULANT ABUSE, UNCOMPLICATED Status: Chronic (3) Intracranial bleed Code(s): I62.9 - NONTRAUMATIC INTRACRANIAL HEMORRHAGE, UNSPECIFIED Status: Acute - Plan DVT proph w/SCDs * . Start glipizide. Pt reportedly told by neurosurgery service she is being discharged home later today. She should followup with PCP [facility] re: diabetes management. Review of Systems - Review of Systems Respiratory: negative: Cough, Dry, Shortness of Breath, Hemoptysis, SOB with Excertion, Pleuritic Pain, Sputum, Wheezing Cardiovascular: negative: Chest Pain, Palpitations, Orthopnea, Paroxysmal Noc. Dyspnea, Edema, Light Headedness, Other Gastrointestinal: negative: Nausea, Vomiting, Abdominal Pain, Diarrhea, Constipation, Melena, Hematochezia, Other - Medications/Allergies Allergies/Adverse Reactions: Allergies Allergy/AdvReac Type Severity Reaction Status Date / Time Fish Containing Products Allergy Verified 01/19/17 17:45 iodine Allergy Verified 01/19/17 09:29 shellfish derived Allergy Verified 01/19/17 09:29 Medications: Current Medications Acetaminophen/Codeine Phosphate (Tylenol #3) 1 tab PO Q4H PRN PRN Reason: Moderate Pain (4-6) Last Admin: 01/22/17 08:22 Dose: 1 tab Acetaminophen/Codeine Phosphate (Tylenol #3) 2 tab PO Q4H PRN PRN Reason: Pain Last Admin: 01/23/17 09:45 Dose: 2 tab Dextrose/Water (Dextrose 50%) 25 gm SLOW IVP PRN PRN PRN Reason: Hypoglycemia Docusate Sodium (Colace) 100 mg PO BIDPRN PRN PRN Reason: Constipation Glipizide (Glucotrol Xl) 5 mg PO QAM-[facility] Glucagon (Glucagon) 1 mg IM PRN PRN PRN Reason: Hypoglycemia Hydralazine HCl (Apresoline) 5 mg SLOW IVP Q15MIN PRN PRN Reason: SBP > 120 Sodium Chloride (Normal Saline 0.9%) 1,000 mls @ 125 mls/hr IV .Q8H [facility] Last Admin: 01/23/17 12:56 Dose: 1,000 mls Levetiracetam 500 mg/ Device 100 mls @ 200 mls/hr IVPB BID [facility] Last Admin: 01/23/17 10:31 Dose: 100 mls Dextrose/Water (D5w) 1,000 mls @ 0 mls/hr IV .Q0M PRN; As Directed PRN Reason: Hypoglycemia Sodium Chloride (Normal Saline 0.9%) 1,000 mls @ 80 mls/hr IV .[id number] [facility] Last Admin: 01/23/17 00:40 Dose: Not Given Insulin Detemir 20 units/ (Miscellaneous Medication) 0.2 mls @ 0 mls/hr SC QAM [facility] Last Admin: 01/23/17 10:29 Dose: 0.2 mls Insulin Human Regular (Humulin R) 0 units SC .MODERATE SLIDING SC PRN PRN Reason: Moderate Correctional Scale Last Admin: 01/23/17 06:26 Dose: 2 unit Labetalol HCl (Normodyne) 5 mg SLOW IVP Q15MIN PRN PRN Reason: TO KEEP SBP < 130 Metformin HCl (Glucophage) 1,000 mg PO BID[facility] Morphine Sulfate (Morphine Sulfate) 4 mg SLOW IVP Q1H PRN PRN Reason: Severe Pain (7-10) Last Admin: 01/23/17 12:52 Dose: 4 mg Morphine Sulfate (Morphine Sulfate) 2 mg SLOW IVP Q1H PRN PRN Reason: Moderate Pain (4-6) Nimodipine (Nimodipine) 60 mg PO Q4HR [facility] Last Admin: 01/23/17 12:52 Dose: 60 mg Ondansetron HCl (Zofran) 4 mg IVP Q6H PRN PRN Reason: Nausea/Vomiting Last Admin: 01/23/17 05:54 Dose: 4 mg Pantoprazole Sodium (Protonix) 40 mg PO DAILY [facility]
--- NOTE | 2017-01-23 13:35 | PRG ---
DATE OF SERVICE: 01/23/2017 SUBJECTIVE: I saw Ms. Haas in her hospital room this morning. She complains of headache, still h er vital signs have been stable overnight. I am seeing her this morning and I do not find any crani al neuropathy. There are no lateralizing motor or sensory deficits. Ms. Haas's angiogram was negative. Her CT angiogram was negative. There is no obvious dissection , aneurysm, AVM fistula or occluded venous sinuses. Ms. Haas suffered a venous perimesencephalic hemorrhage, which thought to have a relatively benign course. Ms. Haas was anxious to get home and I think once she has regular activities of daily living she c an do just that.
[2017-01-23] MEDS ORDERED: levETIRAcetam 500 MG TAB PO SCH (22:30)
[2017-01-24] MEDS: niMODipine 30 MG CAP PO SCH ×3 (00:58→08:10)
[2017-01-24] MEDS: Acetaminophen/Codeine 30-300mg Tablet PO PRN ×2 (01:00→06:13)
[2017-01-24] MEDS: Sodium Chloride 0.9% 1,000 ML IV SCH ×2 (02:34→03:06)
[2017-01-24 07:51] VITALS: BP 134/83; TEMP 99.7
[2017-01-24] MEDS ORDERED: levETIRAcetam 500 MG TAB PO SCH (09:00)
--- NOTE | 2017-01-24 12:20 | PDOC.PN ---
- Subjective Encounter Start Date: 01/24/17 Encounter Start Time: 07:20 Pt seen for followup re: diabetes mellitus. Says headache is better. Says she is ready to go home. No chest pain, shortness of breath, fevers or chills. - Objective MAR Reviewed: Yes Vital Signs & Weight: Vital Signs (12 hours) Temp Pulse Resp BP Pulse Ox 01/24/17 07:51 99.7 F H 76 16 134/83 99 01/24/17 04:18 99.5 F 68 12 138/74 100 Weight Weight 211 lb 4.797 oz Most Recent Monitor Data Heart Rate from ECG 59 NIBP 131/72 NIBP BP-Mean 83 Respiration from ECG 13 SpO2 100 I&O: 01/23/17 01/24/17 01/25/17 06:59 06:59 06:59 Intake Total 2173 120 Output Total 2950 800 Balance -352 -288 Result Diagrams: 01/20/17 03:48 01/20/17 03:48 Additional Labs: Accuchecks 01/24/17 01/23/17 01/23/17 06:12 20:54 16:52 POC Glucose 135 H 175 H 253 H EKG Reviewed by me: Yes (Tele: NSR) Phys Exam - Physical Examination Obese HEENT: moist MMs, oral pharynx no lesions Neck: supple Respiratory: no wheezing, no rales, no rhonchi, clear to auscultation bilateral Cardiovascular: RRR, no rub Gastrointestinal: soft, positive bowel sounds Musculoskeletal: pulses present Neurological: moves all 4 limbs Skin: normal turgor Dx/Plan (1) DM2 (diabetes mellitus, type 2) Status: Chronic (2) Methamphetamine abuse Code(s): F15.10 - OTHER STIMULANT ABUSE, UNCOMPLICATED Status: Chronic (3) Intracranial bleed Code(s): I62.9 - NONTRAUMATIC INTRACRANIAL HEMORRHAGE, UNSPECIFIED Status: Acute - Plan * . Sent pt's glipizide prescription to her pharmacy. Will dictate a short summary so her clinic is aware of poorly controlled diabetes mellitus. Plan to discharge pt (by neurosurgery service) noted, will sign off. Review of Systems - Review of Systems Respiratory: negative: Cough, Dry, Shortness of Breath, Hemoptysis, SOB with Excertion, Pleuritic Pain, Sputum, Wheezing Cardiovascular: negative: Chest Pain, Palpitations, Orthopnea, Paroxysmal Noc. Dyspnea, Edema, Light Headedness Gastrointestinal: negative: Nausea, Vomiting, Abdominal Pain, Diarrhea, Constipation, Melena, Hematochezia - Medications/Allergies Allergies/Adverse Reactions: Allergies Allergy/AdvReac Type Severity Reaction Status Date / Time Fish Containing Products Allergy Verified 01/19/17 17:45 iodine Allergy Verified 01/19/17 09:29 shellfish derived Allergy Verified 01/19/17 09:29
--- NOTE | 2017-01-24 12:40 | DIS ---
DATE OF ADMISSION: 01/19/2017 DATE OF DISCHARGE: 01/24/2017 PRIMARY CARE PROVIDER: Lana Bell DISCHARGE DIAGNOSES: 1. Poorly controlled diabetes mellitus. 2. Intracranial bleed. DISCHARGE MEDICATIONS: Nimodipine 60 mg every 4 hours, omeprazole 10 mg daily, glipizide 5 mg daily , Keppra 500 mg 2 times a day, metformin 1000 mg 2 times a day, Tylenol #3 p.r.n. HOSPITAL COURSE: Ms. Haas was admitted to [facility] on 01/19/2017 for a coital subarachnoid hemorrhage. She was admitted to Neurosurgery Service. I followed her from the hospitalist service. She had poorly controlled diabetes mellitus. During this hospitalization, bibi orlando received Levemir insulin as well as insulin by sliding scale. She also received steroids during t his hospitalization; therefore needed, insulin. I advised her to follow up with her primary care provider in 1 day's time to discuss out diabetes ma nagement. She will likely need insulin therapy. She has been started on glipizide 5 mg daily in ad dition to her metformin 1000 mg 2 times a day. This discharge note is mainly to make the clinic aware of poorly-controlled diabetes mellitus. Many thanks for allowing me to participate in your patient's care. Please feel free to contact me w ith any questions or concerns.
== END 2017-01-24 08:23 | disposition home or self-care (01) | DRG 66 ==
LOC: ERS 05:07 → CCU 09:16 → 2SE 01-21 16:10
PROVIDERS: ADMIT Neurological Surgery; ATTEND Neurological Surgery
PROC: B31F1ZZ Fluoroscopy of Left Vertebral Artery using Low Osmolar Contrast (ICD-10-PCS; principal; 2017-01-21)
DX: I60.9 Nontraumatic subarachnoid hemorrhage, unspecified (principal); E11.65 Type 2 diabetes mellitus with hyperglycemia; Z79.84 Long term (current) use of oral hypoglycemic drugs; K21.9 Gastro-esophageal reflux disease without esophagitis; F15.10 Other stimulant abuse, uncomplicated; Z91.013 Allergy to seafood
CPT/HCPCS: 36216; 36224; 36226; 36415; 36416; 70450; 70496; 70498; 80048; 83930; 85025; 96374; C9113; G8978-GP-CK; G8979-GP-CH; G8987-GO-CL; G8988-GO-CI; G9162-GN-CI; G9163-GN-CH; J1100; J1644; J1815; J1953; J2270; J2405; J3010

== ENCOUNTER 2017-01-28 12:36 | Emergency (ER) | payer SELFPAY ==
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
[2017-01-28] MEDS ORDERED: Ondansetron HCl/PF 4 MG/2 ML Vial ONE (12:56)
[2017-01-28] MEDS ORDERED: Morphine Sulfate 2 MG/ML SYRINGE ONE (12:57)
[2017-01-28 13:07] LABS: #Eosinphils 0.1 thou/uL (0.0-0.7); #Lymphocytes 1.6 thou/uL (1.20-3.40); #Monocytes 0.6 thou/uL (0.11-0.59); #Neutrophils 5.7 thou/uL (1.40-6.50); %Basophils 0.1 % (0.0-1.0); %Eosinophils 1.8 % (0.0-10.0); %Lymphocytes 19.6 % (21.0-51.0); %Monocytes 7.4 % (0.0-10.0); Hematocrit 42.3 % (36.0-47.0); Mean Platelet Volume 7.3 fL (7.4-10.4); Red Blood Cell (RBC) Count 4.41 mill/uL (4.20-5.40)
[2017-01-28 13:26] LABS: ALT (SGPT) Less than 7 U/L (8-55); AST (SGOT) 13 U/L (5-34); Alkaline Phosphatase 63 U/L (40-150); Anion Gap 17 mmol/L (10-20); BUN (Urea Nitrogen) 4 mg/dL (7.0-18.7); Bilirubin, Total 0.5 mg/dL (0.2-1.2); Calc. Creatinine Clearance 0 mL/min (70-130); Calcium 9.7 mg/dL (7.8-10.44); Carbon Dioxide 23 mmol/L (22-29); Chloride 96 mmol/L (98-107); Estimated GFR-MDRD Greater than 90; Globulin 3.7 g/dL (2.4-3.5); Protein, Total 7.9 g/dL (6.0-8.3)
--- NOTE | 2017-01-28 13:37 | CT ---
NONCONTRAST HEAD CT: Date: 01/28/17 HISTORY: Brain bleed diagnosed last Saturday. COMPARISON: 01/19/17, 01/20/17. TECHNIQUE: A noncontrast head CT is performed from the skull base to the skull vertex. FINDINGS: No parenchymal hemorrhage or extra-axial hematoma. No midline shift. Basilar cisterns are patent. Br ain volume is age-appropriate. Cortical christie-white matter differentiation is preserved. Ventricles a nd sulci are patent and symmetric. Calvarium is intact. Adequate aeration of the sinuses and mastoid air cells. The previously noted intraventricular hemorrhage is no longer evident. IMPRESSION: The previously noted intraventricular hemorrhage is no longer evident. No evidence of acute intracra nial hemorrhage. POS: [facility]
[2017-01-28] MEDS ORDERED: niMODipine 30 MG CAP PO SCH (14:15)
== END 2017-01-28 15:08 | disposition home or self-care (01) ==
LOC: ERS 12:36
DX: I60.9 Nontraumatic subarachnoid hemorrhage, unspecified (principal); E11.9 Type 2 diabetes mellitus without complications; F41.9 Anxiety disorder, unspecified; F32.9 Major depressive disorder, single episode, unspecified
CPT/HCPCS: 36415; 70450; 80053; 82140; 85025; 96374; 96375; J2270; J2405

== ENCOUNTER 2023-05-28 10:44 | Inpatient (IN) | payer BC ==
[2023-05-28 12:48] LABS: Base Excess -20.1 mEq/L (-2.0 to +3.0); Calcium, Ionized (venous) 0.99 mmol/L (1.16-1.32); Chloride (VBG) 105 mmol/L (98-106); Hematocrit-VBG 43 % (36.0-47.0); Hemoglobin (Hb) 14.7 g/dL (11.7-15.5); Potassium (VBG) 4.42 mmol/L (3.70-5.30); Sodium 133 mmol/L (133-146)
[2023-05-28 12:49] LABS: BUN (Urea Nitrogen) 23 mg/dL (7.0-18.7); Calc. Creatinine Clearance 0 mL/min (70-130); Calcium 8.6 mg/dL (7.8-10.44); Chloride 107 mmol/L (98-107); Estimated GFR 56; Glucose 168 mg/dL (70-105); Potassium 4.6 mmol/L (3.5-5.1); Sodium 130 mmol/L (136-145)
[2023-05-28 12:50] LABS: pH (venous) 7.155 (7.32-7.43)
[2023-05-28 12:51] LABS: Actual Bicarbonate (HCO3v) 6.6 mEq/L (22-28)
[2023-05-28 13:10] LABS: Carbon Dioxide Less than 8 mmol/L (22-29); Critical Call Chemistry NUR.SS14 @1309
[2023-05-28] MEDS ORDERED: Dextrose 5 %-0.45 % NaCl 1,000 ML IV PRN (13:43)
[2023-05-28] MEDS ORDERED: Dextrose 50% Abboject 50 ML SYRINGE SLOW IVP PRN (13:43)
[2023-05-28] MEDS ORDERED: Sodium Chloride 0.9% 1,000 ML IV PRN ×4 (13:43)
[2023-05-28] MEDS ORDERED: NS 0.9% w/ 20 MEQ KCL 1,000 ML IV PRN ×2 (13:43)
[2023-05-28] MEDS ORDERED: Electrolyte Replacement Protocol 1 EACH IVPB SCH (13:43)
[2023-05-28] MEDS ORDERED: HUMULIN R 100 UNITS in Sodium Chloride 0.9% 100 ML IVPB SCH (13:45)
[2023-05-28] MEDS ORDERED: D5 1/2 NS w/20 mEq KCL 1,000 ML ONE (13:49)
[2023-05-28 14:47] LABS: SARS-CoV-2 NAA Rapid Test Not Detected (NotDetected)
[2023-05-28] MEDS: D5 1/2 NS w/20 mEq KCL 1,000 ML IV PRN ×2 (16:53→20:53)
[2023-05-28 17:09] VITALS: BMI 28.8
[2023-05-28] MEDS ORDERED: Ampicillin/Sulbactam 1.5 GM in Sodium Chloride 0.9% 100 ML IVPB SCH (18:00)
[2023-05-28] MEDS ORDERED: Ondansetron PF 4 MG/2 ML Vial IVP PRN (18:39)
[2023-05-28 18:41] LABS: Anion Gap 11 mmol/L (10-20); BUN (Urea Nitrogen) 18 mg/dL (7.0-18.7); Calc. Creatinine Clearance 84 mL/min (70-130); Calcium 8.4 mg/dL (7.8-10.44); Carbon Dioxide 15 mmol/L (22-29); Chloride 109 mmol/L (98-107); Estimated GFR 61; Glucose 211 mg/dL (70-105); Potassium 4.2 mmol/L (3.5-5.1); Sodium 131 mmol/L (136-145)
[2023-05-28] MEDS: Ampicillin/Sulbactam 3 GM in Sodium Chloride 0.9% 100 ML IVPB SCH (20:02)
[2023-05-28 23:30] LABS: Anion Gap 10 mmol/L (10-20); BUN (Urea Nitrogen) 14 mg/dL (7.0-18.7); Calc. Creatinine Clearance 103 mL/min (70-130); Carbon Dioxide 17 mmol/L (22-29); Chloride 111 mmol/L (98-107); Estimated GFR 78; Glucose 189 mg/dL (70-105); Potassium 4.1 mmol/L (3.5-5.1); Sodium 134 mmol/L (136-145)
[2023-05-29] MEDS: D5 1/2 NS w/20 mEq KCL 1,000 ML IV PRN (01:08)
[2023-05-29 02:10] LABS: #Eosinphils 0.1 thou/uL (0.0-0.7); #Monocytes 0.7 thou/uL (0.11-0.59); #Neutrophils 3.1 thou/uL (1.40-6.50); %Eosinophils 1.9 % (0.0-10.0); %Lymphocytes 26.7 % (21.0-51.0); %Monocytes 13.5 % (0.0-10.0); %Neutrophils 57.7 % (42.0-75.0); Hematocrit 32.9 % (36.0-47.0); Hemoglobin 11.4 g/dL (12.0-16.0); Mean Corpuscular HGB CONC 34.7 g/dL (32.0-36.0); Mean Corpuscular Hemoglobin 31.3 pg (27.0-31.0); Mean Corpuscular Volume 90.4 fl (78.0-98.0); Mean Platelet Volume 9.2 fL (7.4-10.4); Platelet Count 260 10x3/uL (130-400); RBC Distribution Width 11.9 % (11.5-14.5); Red Blood Cell (RBC) Count 3.64 mill/uL (4.20-5.40); White Blood Cell (WBC) Count 5.3 10x3/uL (4.8-10.8)
[2023-05-29 02:31] LABS: Anion Gap 9 mmol/L (10-20); BUN (Urea Nitrogen) 12 mg/dL (7.0-18.7); Calc. Creatinine Clearance 109 mL/min (70-130); Calcium 7.9 mg/dL (7.8-10.44); Carbon Dioxide 16 mmol/L (22-29); Chloride 114 mmol/L (98-107); Estimated GFR 84; Glucose 154 mg/dL (70-105); Potassium 4.3 mmol/L (3.5-5.1); Sodium 135 mmol/L (136-145)
[2023-05-29] MEDS ORDERED: Insulin Glargine 30 UNITS/0.3 ML VIAL SC SCH ×2 (03:00→07:30)
[2023-05-29] MEDS: Ampicillin/Sulbactam 3 GM in Sodium Chloride 0.9% 100 ML IVPB SCH ×2 (03:05→08:36)
[2023-05-29] MEDS ORDERED: HumaLOG 300 UNITS/3 ML VIAL SC PRN ×3 (03:10→06:15)
[2023-05-29] MEDS ORDERED: Dextrose 5% in Water 1,000 ML IV PRN (03:10)
[2023-05-29] MEDS ORDERED: Glucagon 1 MG/ML KIT IM PRN (03:11)
[2023-05-29] MEDS ORDERED: Lactated Ringer's 1,000 ML IV SCH (03:15)
[2023-05-29] MEDS ORDERED: Calcium Carbonate 500 MG ChewTAB PO PRN (05:10)
[2023-05-29] MEDS ORDERED: Mag-Al 1200 mg/1200 mg/30 ML UDCUP PO PRN (05:10)
[2023-05-29 06:13] LABS: Anion Gap 13 mmol/L (10-20); BUN (Urea Nitrogen) 12 mg/dL (7.0-18.7); Calc. Creatinine Clearance 109 mL/min (70-130); Carbon Dioxide 16 mmol/L (22-29); Chloride 112 mmol/L (98-107); Estimated GFR 84; Glucose 232 mg/dL (70-105); Potassium 4.5 mmol/L (3.5-5.1); Sodium 136 mmol/L (136-145)
[2023-05-29 06:14] LABS: Magnesium 1.8 mg/dL (1.6-2.6)
[2023-05-29] MEDS ORDERED: Magnesium 2 GM/50 ML(in water) 2 GM in Premix 1 BAG IVPB SCH (08:00)
[2023-05-29 10:19] LABS: Anion Gap 15 mmol/L (10-20); BUN (Urea Nitrogen) 12 mg/dL (7.0-18.7); Calc. Creatinine Clearance 109 mL/min (70-130); Calcium 8.4 mg/dL (7.8-10.44); Carbon Dioxide 16 mmol/L (22-29); Chloride 107 mmol/L (98-107); Estimated GFR 82; Glucose 210 mg/dL (70-105); Potassium 4.4 mmol/L (3.5-5.1); Sodium 134 mmol/L (136-145)
[2023-05-29 14:10] VITALS: TEMP 97.1
[2023-05-29] MEDS ORDERED: Empagliflozin/Metformin Hcl [Synjardy 12.5-1,000 Mg Tablet] PO SCH (21:00)
== END 2023-05-29 18:01 | disposition home or self-care (01) | DRG 639 ==
LOC: ERS 10:44 → IMCU/EMU 16:22
PROVIDERS: ADMIT Internal Medicine; ATTEND Internal Medicine
DX: E11.10 Type 2 diabetes mellitus with ketoacidosis without coma (principal); J02.0 Streptococcal pharyngitis; Z91.041 Radiographic dye allergy status; Z91.013 Allergy to seafood; Z79.84 Long term (current) use of oral hypoglycemic drugs; Z79.899 Other long term (current) drug therapy; Z98.890 Other specified postprocedural states; Z79.4 Long term (current) use of insulin; Z11.52 Encounter for screening for COVID-19
CPT/HCPCS: 36415; 36416; 80048; 82805; 83735; 85025; 93005; J0295; J1815; J2405; J3475; J3480; J3490; J7120; J7999